=== PATIENT | male | born 1975 ===

== ENCOUNTER 2020-05-03 16:27 | Observation (INO) | payer MEDICARE ==
[~2020-05-03] VITALS: Ht 182.9 cm; Wt 122.6 kg
--- NOTE | 2020-05-03 17:50 | NUR ---
Patient arrives to room via cart by [facility]. Alert and oriented x4. Rates pain in chest 2/10. Does have a headache that has persisted for over a week. Able to transfer self. Uses restroom at this time. Oriented to room.
[2020-05-03] MEDS ORDERED: NITROSTAT0.4 MG/TAB SL (18:00)
[2020-05-03] MEDS ORDERED: ASPIRIN 81M81 MG/TA2 PO (18:06)
[2020-05-03] MEDS ORDERED: PLAVIX 75MG TAB75 MG PO (18:07)
[2020-05-03] MEDS ORDERED: COREG 25MG25 MG/TAB PO (18:08)
[2020-05-03] MEDS ORDERED: LIPITOR 80MG80 MG PO (18:09)
[2020-05-03] MEDS ORDERED: CLARITIN 1010 MG/TAB PO (18:10)
[2020-05-03] MEDS ORDERED: FLONASEALLERGY NS (18:11)
[2020-05-03] MEDS ORDERED: ULTRAM 50MG TAB50 MG PO (18:12)
[2020-05-03] MEDS ORDERED: TYLENOL 500MG500 MG PO (18:13)
--- NOTE | 2020-05-03 18:30 | NUR ---
Dr. [place] updated that the patient is here. No new orders at this time. He will see the patient tomorrow.
[2020-05-03 18:31] VITALS: BP 147/85; PULSE 61; TEMP 97.6
[2020-05-03 19:37] VITALS: BP 142/95; PULSE 64; TEMP 97.7
--- NOTE | 2020-05-03 19:40 | NUR ---
PT IN CHAIR. HAS HEADACHE 11/29, MEDICATED WITH TRAMADOL 50MG PO AT THIS TIME. SL TO RIGHT AC. PLACED NITRO PASTE ON RT CHEST. DENIES CHEST PAIN AT THIS TIME.
--- NOTE | 2020-05-03 21:00 | NUR ---
TO CT PER W/C
--- NOTE | 2020-05-03 21:30 | NUR ---
RETURNS FROM CT.
[2020-05-03 23:32] VITALS: BP 128/74; PULSE 64; TEMP 97.7
--- NOTE | 2020-05-03 23:45 | NUR ---
DENIES HEADACHE. HAD CLEAR LIQUIDS OF JUICE AND JELLO AND FEELS BETTER. WILL BE NPO AFTER MIDNIGHT. IVF INFUSING TO RIGHT AC WITHOUT REDNESS OR SWELLING.
[2020-05-04 03:36] VITALS: BP 111/68; PULSE 58; TEMP 98.3
--- NOTE | 2020-05-04 05:51 | NUR ---
PT DENIES PAIN AT THIS TIME.
[2020-05-04 06:20] LABS: BASO % 0.5 % (0.0-2.0); EOS # 0.1 (0.0-0.7); EOS % 1.4 % (0-4.0); GRAN # 4.1 (1.4-6.5); GRAN % 65.5 % (42.2-75.2); HEMATOCRIT 41.8 % (42.0-52.0); HEMOGLOBIN 13.5 g/dl (13.5-18.0); LYMPH # 1.5 (1.2-3.4); LYMPH % 23.9 % (20.0-51.0); MEAN CELL VOLUME 93 fl (80.0-100.0); MEAN CORPUSCULAR HEMOGLOBIN 30 pg (27.0-31.0); MEAN CORPUSCULAR HGB CONC 32 g/dl (33.0-37.0); MEAN PLATELET VOLUME 10.5 fl (7.4-10.4); MONO # 0.5 (0.1-0.6); MONO % 8.4 % (1.7-9.3); PLATELET COUNT 255 K/mm3 (130-400)
[2020-05-04 06:30] LABS: ALBUMIN 3.8 gm/dL (3.5-5.0); BILIRUBIN,TOTAL 0.7 mg/dL (0.0-1.0); CALCIUM 9.1 mg/dL (8.4-10.2); CREATININE, serum 1.08 (0.66-1.25); POTASSIUM 4.1 mmol/L (3.4-5.0); TOTAL PROTEIN 6.8 gm/dL (6.4-8.2)
[2020-05-04 08:26] VITALS: BP 114/78; PULSE 63; TEMP 97.8
--- NOTE | 2020-05-04 10:06 | NUR ---
Patient alert and oriented, answers questions appropriately. See assessment. Heart tones strong and even, pulses palpable. No c/o of chest pain or pressure. No other c/o at this time.
[2020-05-04] MEDS ORDERED: PLAVIX 75MG TAB75 MG PO (10:48)
[2020-05-04] MEDS ORDERED: LIPITOR 80MG80 MG PO (10:48)
[2020-05-04] MEDS ORDERED: NITROSTAT0.4 MG/TAB SL (10:49)
[2020-05-04] MEDS ORDERED: COREG 25MG25 MG/TAB PO (10:49)
[2020-05-04 11:33] VITALS: BP 114/75; PULSE 62; TEMP 97.9
--- NOTE | 2020-05-04 11:42 | NUR ---
[facility] visited and offered support with patient. Nothing else needed at this time.
--- NOTE | 2020-05-04 11:44 | NUR ---
SW met with patient to conduct intake evaluation. Patient lives at home in [place] with his Katelin (P# [phone]). Patient's is his DPOA. Patient reported that he will be able to get hospital a copy of paperwork next week. Patient reports needing assistance with most activities of daily living. Patient has assitance through [facility]. SW contact [facility] [phone] and faxed discharge orders to [facility]. Patient requires a cane and walker for mobility. Patient was unsure who his new PCP will be through [facility]. He uses [facility] in for pharmacy needs. Patient plans to return home with at discharge. Patient will disharge today 05/04. Patient denies questions or concerns at this time.
--- NOTE | 2020-05-04 12:21 | NUR ---
Discharge instructions reviewed with patient, verbalized understanding. Discharged via wheelchair to auto/home with spouse at 1210.
== END 2020-05-04 12:10 | disposition home or self-care (01) ==
LOC: MEDICAL 16:27 → SURG 17:58
DX: R07.9 Chest pain, unspecified (principal); R51.9 Headache, unspecified; I10 Essential (primary) hypertension; E78.5 Hyperlipidemia, unspecified; I25.10 Atherosclerotic heart disease of native coronary artery without angina pectoris; E66.9 Obesity, unspecified; Z88.1 Allergy status to other antibiotic agents; Z91.018 Allergy to other foods; Z79.51 Long term (current) use of inhaled steroids; Z95.5 Presence of coronary angioplasty implant and graft; Z87.891 Personal history of nicotine dependence; Z79.02 Long term (current) use of antithrombotics/antiplatelets
CPT/HCPCS: J1650; J7030; Q9967

== ENCOUNTER 2021-08-13 16:16 | Emergency (ER) | payer OTHER ==
[~2021-08-13] VITALS: Ht 182.9 cm; Wt 127.3 kg
[~2021-08-13 16:16] MED LIST: ASPIRIN 81M81 MG/TA2 PO; CLARITIN 1010 MG/TAB PO; COREG 25MG25 MG/TAB PO; FLONASEALLERGY NS; LIPITOR 80MG80 MG PO; NITROSTAT0.4 MG/TAB SL; PLAVIX 75MG TAB75 MG PO; TYLENOL 500MG500 MG PO; ULTRAM 50MG TAB50 MG PO
[2021-08-13 16:21] VITALS: TEMP 97.8
[2021-08-13 17:32] LABS: COLLECTION METHOD CLEAN CATCH
[2021-08-13 17:40] LABS: BASO % 0.4 % (0.0-2.0); EOS # 0.1 K/mm3 (0.0-0.7); GRAN # 4.4 K/mm3 (1.4-6.5); GRAN % 64.8 % (42.2-75.2); HEMOGLOBIN 14.4 g/dl (13.5-18.0); LYMPH # 1.7 K/mm3 (1.2-3.4); LYMPH % 24.6 % (20.0-51.0); MEAN CELL VOLUME 91 fl (80.0-100.0); MEAN CORPUSCULAR HEMOGLOBIN 30 pg (27-31); MEAN CORPUSCULAR HGB CONC 33 g/dl (33.0-37.0); MEAN PLATELET VOLUME 9.7 fl (7.4-10.4); MONO # 0.6 K/mm3 (0.1-0.6); MONO % 9.1 % (1.7-9.3); PLATELET COUNT 305 K/mm3 (130-400); RED BLOOD COUNT 4.83 M/mm3 (4.20-5.60); REDCELL DISTRIBUTION WIDTH-CV 12.6 % (11.5-14.5)
[2021-08-13 17:43] LABS: MUCOUS Present (NOT PRESENT); PH 7 (5-8); SQUAMOUS EPITHELIAL None Seen /hpf (0-10); URINE APPEARANCE Clear (CLEAR/HAZY); URINE BACTERIA None Seen /hpf (NONE SEEN); URINE BILIRUBIN Negative (NEGATIVE); URINE BLOOD Negative (NEGATIVE); URINE COLOR Yellow (YELLOW); URINE GLUCOSE Negative (NEGATIVE); URINE KETONE Negative (NEGATIVE); URINE LEUKOCYTE ESTERASE Negative (NEGATIVE); URINE NITRATE Negative (NEGATIVE); URINE PROTEIN(semi-quant) Negative (NEGATIVE); URINE RBC None Seen /hpf (0-2); URINE UROBILINOGEN Negative (NEGATIVE)
[2021-08-13 17:56] LABS: ALBUMIN 3.9 gm/dL (3.5-5.0); BILIRUBIN,TOTAL 0.3 mg/dL (0.2-1.2); C-REACTIVE PROTEIN 0.39 mg/dL (0.00-0.50); CALCIUM 9.3 mg/dL (8.4-10.2); CREATININE, serum 0.91 mg/dL (0.72-1.25); POTASSIUM 3.9 mmol/L (3.5-4.5); TOTAL PROTEIN 6.8 gm/dL (6.2-8.1)
[2021-08-13] MEDS ORDERED: PRIL40 PO (18:25)
[2021-08-13 18:53] VITALS: BP 146/96; PULSE 58
== END 2021-08-13 18:53 | disposition home or self-care (01) ==
LOC: COL.ER 16:16
PROVIDERS: Nurse Practitioner Primary Care
DX: R10.12 Left upper quadrant pain (principal); R10.13 Epigastric pain; E66.01 Morbid (severe) obesity due to excess calories
CPT/HCPCS: J7030